=== PATIENT | male | born 1975 | race Caucasian/White ===

== ENCOUNTER → 2020-08-26 14:38 | Outpatient (BNVA) | payer BC, MEDICAID, SELFPAY | PROVIDERS: Visit Provider Nurse Practitioner Family | DX: M54.16 Radiculopathy, lumbar region (principal); Z20.822 Contact with and (suspected) exposure to COVID-19; M62.830 Muscle spasm of back; M54.10 Radiculopathy, site unspecified | CPT/HCPCS: 87635 ==

== ENCOUNTER → 2021-03-16 14:05 | Outpatient (BNVA) | payer BC, MEDICAID, SELFPAY | PROVIDERS: Visit Provider Nurse Practitioner Family | DX: Z20.822 Contact with and (suspected) exposure to COVID-19 (principal) | CPT/HCPCS: 87635 ==

== ENCOUNTER → 2022-03-10 12:57 | Outpatient (BNVA) | payer BC, MEDICAID, SELFPAY | PROVIDERS: Visit Provider Emergency Medicine | DX: M25.571 Pain in right ankle and joints of right foot (principal) | CPT/HCPCS: 73610 ==

== ENCOUNTER 2022-05-09 05:07 | Emergency (ER) | payer BC, MEDICAID, SELFPAY ==
--- NOTE | 2022-05-09 05:10 | XRR_ITS ---
PROCEDURE INFORMATION: Exam: XR Right Hand Exam date and time: 05/09/2022 5:15 AM Age: 46 years old Clinical indication: Pain; Right; Patient HX: RT hand hand, denies injury TECHNIQUE: Imaging protocol: Radiologic exam of the right hand. Views: 3 or more views. Frontal Oblique Lateral COMPARISON: No relevant prior studies available. FINDINGS: Bones/joints: There is normal alignment without fractures or dislocations. The joints appear unremarkable. The visualized incompletely evaluated wrist region is grossly unremarkable. Soft tissues: Mild dorsal hand metacarpal head region soft tissue prominence/swelling is seen on the lateral view. There are no radiopaque foreign bodies. Notes: If there is further concern, recommend follow-up radiographs or MRI for complete assessment. XR/XR hand RT min 3V* [id number] IMPRESSION: 1. No fractures or dislocation of the right hand. 2. Mild dorsal hand metacarpal head region soft tissue prominence/swelling.
[2022-05-09 05:15] VITALS: BP 137/92; PULSE 97; RESP 16; TEMP 36.4; O2SAT 96; BMI 32.0
[2022-05-09] MEDS: ketorolac 60 mg/2 mL INJ IM (05:23)
--- NOTE | 2022-05-09 05:25 | ED_ITS ---
HPI - General Adult General: Chief complaint: Extremity Problem,Nontraumatic Stated complaint: right hand pain Time Seen by Provider: 05/09/22 05:08 Source: patient Mode of arrival: ambulatory Limitations: no limitations History of Present Illness: 46-year-old male states that he is working tonight and while at work roughly 30 minutes ago he started having right wrist pain shooting to his hands over his anterior wrist he states it is a lightening type pain worse with movement and with palpation denies any known injuries denies any fevers. Associated symptoms: Deny chest pain, dyspnea, headache(s), nausea, rash or vomiting Review of Systems Const: Denies: fever(s), chills, body aches or change in appetite Eyes: Denies: blurry vision or eye discomfort ENMT: Denies: throat pain or dental pain Card: Denies: chest pain Resp: Denies: dyspnea GI: Denies: abdominal pain, nausea, vomiting or diarrhea : Denies: dysuria Musc: Reports: extremity pain Skin/Breast: Denies: rash Neuro: Denies: headache(s) Psych: Denies: depression Reynaldo/Lymph: Denies: easy bruising All/Imm: Denies: urticaria PFSH ED PFSH: Medical History (Updated 05/09/22 @ 05:40 by Anjel Napoles MD) No pertinent past medical history Social History Smoking and tobacco status: current every day smoker Alcohol intake: never Physical Exam Const: COMMON NORMALS: no acute distress and patient oriented x3 HENMT: COMMON NORMALS: normocephalic HEAD & SCALP: normocephalic Eye: COMMON NORMALS: conjunctivae normal CONJUNCTIVA: Yes conjunctivae normal Neck/C-Spine: COMMON NORMALS: supple Chest: COMMONS NORMALS: normal inspection of the chest Resp: COMMON NORMALS: normal respiratory effort Cardio: COMMON NORMALS: regular rate and regular rhythm RATE: regular rate RHYTHM: regular rhythm GI: INSPECTION: Yes normal to inspection Extremity: OTHER: Positive Tinel's and Phalen sign he has tenderness over his anterior wrist distal pulses intact no erythema no deformities Neuro: COMMON NORMALS: patient oriented x3 Psych: COMMON NORMALS: mental status grossly normal Skin: COMMON NORMALS: no rashes or lesions noted GENERAL SKIN EXAM: no rashes or lesions noted Course Vital Signs: Vital signs: Vital Signs Temperature 97.5 F L 05/09/22 05:15 Pulse Rate 93 05/09/22 05:30 Respiratory Rate 16 05/09/22 05:30 Blood Pressure 126/92 05/09/22 05:30 Pulse Oximetry 99 05/09/22 05:30 Oxygen Delivery Me thod 05/09/22 05:15 MDM - General Adult Medical Decision Making Patient presents with right wrist pain pretty consistent with carpal tunnel he has no injuries x-rays normal no signs of infection no signs of septic joint patient placed in a cock-up splint we will place him on Naprosyn we will get him follow-up with [facility]. Discharge Plan Discharge Patient Disposition: Home Clinical Impression: Pain in right wrist Condition: Stable Prescriptions: New Naprosyn 500 mg tablet 500 mg PO BID PRN (Reason: pain) Qty: 20 0RF No Action (DME) cam walker See Rx Instructions .ROUTE .MEDSUPPLY Qty: 1 0RF Rx Instructions: As directed (DME) crutch Misc See Rx Instructions miscellaneous .MEDSUPPLY Qty: 2 0RF Rx Instructions: As directed Discharge Orders: Discharge ED (Routine); Ordered 05/09/22 Ordered By: Anjel Napoles Referrals: Vikram Yuen DO [Physician] - 1-3 days Discharge Diet: Advance as tolerated Discharge Activity: Resume usual activity Patient Instructions: Carpal Tunnel Syndrome (DC) Stand Alone Forms: Work/School Release Coding Level of Care Code ED Medical Pathologist for [facility]
[2022-05-09 05:30] VITALS: BP 126/92; PULSE 93; RESP 16; O2SAT 99
--- NOTE | 2022-05-09 05:51 | PC.NURSE ---
Pt placed in cock-up splint
--- NOTE | 2022-05-10 09:36 | DCPLANNER ---
Addendum entered by Frances Gimenez 05/24/22 08:44: Patient had a follow up appointment with ortho - patient did attend appointment Addendum entered by Frances Gimenez 05/10/22 13:55: Patient has a follow up appointment scheduled for Saturday, May 21, [address]22 at 3:[address] Yuen at ortho. Clinic will call patient with appointment information. Original Note: sports team manager had message to schedule a follow up appointment for patient with ortho. sports team manager sent patients information to the front office staff at ortho. Patients information will be printed and reviewed. Clinic will call patient with appointment information.
--- NOTE | 2022-05-11 16:09 | DCPLANNER ---
TCM called patient due to no primary care physician - patient declines at this time.
== END 2022-05-09 06:01 | disposition home or self-care (01) ==
PROVIDERS: Emergency Provider Emergency Medicine
DX: M25.531 Pain in right wrist (principal); F17.210 Nicotine dependence, cigarettes, uncomplicated
CPT/HCPCS: 73130; 96372; 99284; J1885

== ENCOUNTER → 2022-07-03 14:35 | Outpatient (BNVA) | payer BC, MEDICAID, SELFPAY | PROVIDERS: Visit Provider Nurse Practitioner Family | DX: R06.02 Shortness of breath (principal); R05.9 Cough, unspecified; R06.2 Wheezing; J22 Unspecified acute lower respiratory infection; B96.89 Other specified bacterial agents as the cause of diseases classified elsewhere | CPT/HCPCS: 87426 ==